=== PATIENT | female | born 1935 | race Caucasian/White ===

== ENCOUNTER 2017-03-30 10:18 | Emergency (ER) | payer MEDICARE ==
[~2017-03-30] VITALS: Ht 160 cm; Wt 104.5 kg
[2017-03-30 10:21] VITALS: BP 158/80; PULSE 62; RESP 14; O2SAT 97
--- NOTE | 2017-03-30 10:32 | ED.REPORT ---
HPI-General Illness Date of Service Mar 30, 2017 ED Provider: Adrian Mendoza MD The pt is a 81 y/o female w/ a hx of HTN and hyperlipidemia presenting to the ED c/o diarrhea onset two weeks ago. The pt reports having 5-6 episodes of diarrhea a day. She is also experiencing a little blood in her stool, dizziness, lightheadedness, lower abdominal pain and lower back pain that comes on like an attack every 15-20 minutes. Denies fevers, vomiting, dysuria, nausea, or recent antibiotics. The pt reports getting a flu shot two weeks ago and her symptoms starting soon after that. Nursing Notes Stated Complaint: DIARRHEA,FLU SYMPTOMS Chief Complaint: Diarrhea Nursing Notes Reviewed: Yes Allergies: Coded Allergies: Penicillins (Verified Allergy, Intermediate, DOESN'T REMEMBER, 03/30/17) Uncoded Allergies: PCN (Allergy, Unknown, 12/23/13) General Time Seen by MD: 10:31 Chief Complaint Diarrhea Hx Obtained From: Patient Arrived By: Walk-in Sudden in Onset?: Yes Onset Occurred: More than a week ago... (2 weeks) Symptom Duration: Intermittent Recent Healthcare: No recent doctor visit, No recent hospitalization Similar Sx Previous: Yes Past Medical History Past Medical History HTN Hyperlipidemia Past Surgical History Bilateral cataract surgery Smoking History Unknown if Ever Smoker Social History Other Social History: Good social support Ambulatory Status Independent Review of Systems Full Review of Systems Constitutional: Denies: Fever GI: Reports: Abdominal pain (Lower ), Bloody/tarry stool, Diarrhea, Denies: Nausea, Vomiting Female: Denies: Dysuria Musculoskeletal: Reports: Back pain (lower ) Neurologic: Reports: Dizziness, Lightheaded Complete sys rev & neg: except as marked. Physical Exam Vital Signs Vital Signs Date Time Temp Pulse Resp B/P Pulse Ox O2 Delivery O2 Flow Rate FiO2 03/30/17 13:41 54 16 158/71 Room Air 03/30/17 10:21 36.5 62 14 158/80 97 Room Air Initial VS: Reviewed General/Constitutional: Well-developed, Well-nourished Head / Eyes: Atraumatic, Normocephalic, PERRL ENT: Mucous membranes moist, Conjunctiva normal, No scleral icterus Neck: Supple, Non-tender, Full range of motion Respiratory: Breath sounds normal, Clear to auscultation, No respiratory distress Cardiovascular: Regular rate & rhythm, Heart sounds normal, Intact distal pulses Back: No CVA tenderness Extremities: Vascular intact, Neuro intact, No swelling, No tenderness Skin: Warm, Dry, No cyanosis Neurologic: Alert, Oriented, Nonfocal Psychiatric: Mood/affect normal, Behavior normal, Normal thought content Abdomen: Soft Mild diffuse abdominal tenderness w/o rebound or guarding Interpretation & Diagnostics Lab Results Interpretation Result Diagram: 03/30/17 1105 03/30/17 1105 Test 03/30/17 11:05 03/30/17 12:49 White Blood Count 10.4th/mm3 (3.8-10.1) Red Blood Count 4.44mil/mm3 (3.90-5.20) Hemoglobin 13.5g/dL (12.0-15.6) Hematocrit 40.8% (35.0-46.0) Mean Corpuscular Volume 91.9fL (81-100) Mean Corpuscular Hemoglobin 30.4pg (27.0-35.0) Mean Corpuscular Hemoglobin Concent 33.1% (32.0-37.0) Red Cell Distribution Width 14.0% (12.3-15.4) Platelet Count 243bil/L (150-400) Neutrophils (%) (Auto) 80.0% (40-74) Lymphocytes (%) (Auto) 11.6% (14-46) Monocytes (%) (Auto) 7.4% (4-12) Eosinophils (%) (Auto) 0.6% (0-5) Basophils (%) (Auto) 0.1% (0-3) Sodium Level 141mEq/L (134-144) Potassium Level 3.8mEq/L (3.5-5.2) Chloride Level 100mEq/L (97-108) Carbon Dioxide Level 25mmol/L (18-29) Blood Urea Nitrogen 27mg/dL (8-27) Creatinine 0.63mg/dL (0.57-1.00) Estimat Glomerular Filtration Rate 130mL/min (>59) Glucose Level 109mg/dL (60-99) Calcium Level 9.6mg/dL (8.5-10.1) Magnesium Level 2.0mg/dL (1.6-2.6) Total Bilirubin 1.3mg/dL (0.0-1.2) Aspartate Amino Transf (AST/SGOT) 38U/L (0-50) Alanine Aminotransferase (ALT/SGPT) 15U/L (0-32) Alkaline Phosphatase 72U/L (25-165) Total Protein 7.2g/dL (6.4-8.4) Albumin 4.0g/dL (3.4-5.0) Lipase 18U/L (13-60) Hold Franklin Top Tube Received (Received) Urine Color Dark yellow (YELLOW) Urine Appearance Clear (CLEAR,HAZY) Urine pH 5.5 (5.0-8.0) Urine Specific [place] 1.030 (1.003-1.035) Urine Protein Tracemg/dL (NEG,TRACE) Urine Glucose (UA) Negativemg/dL (NEGATIVE) Urine Ketones 15mg/dL (NEGATIVE) Urine Occult Blood Negative (NEGATIVE) Urine Nitrite Negative (NEGATIVE) Urine Bilirubin Negative (NEGATIVE) Urine Urobilinogen 1.0mg/dL (NORMAL) Urine Leukocyte Esterase Negative (NEGATIVE) Urine RBC 0-2/hpf (0-2) Urine WBC 0-5/hpf (0-5) Urine Epithelial Cells Occasional/hpf (NONE-MOD) Urine Crystals Oxalic acid crystals (NONE Urine Bacteria None/hpf (NONE-FEW) Urine Hyaline Casts None/lpf (NONE) Urine Granular Casts None seen (NONE SEEN) Urine Waxy Casts None seen (NONE SEEN) Urine Red Blood Cell Casts None seen (NONE SEEN) Urine White Blood Cell Casts None seen (NONE SEEN) Urine Mucus None seen (None Seen) Urine Trichomonas None seen (NONE SEEN) Urine Yeast None (NONE SEEN) Urinalysis Comment None Urine Culture Reflexed Not indicated Re-Eval/Medical Decision Med Decision/Clinical Course 81-year-old female presenting complaining of diarrhea 2 weeks. Multiple episodes daily. No blood at this time. Her abdomen is soft with minimal lower abdominal tenderness. Her white blood cell count is normal. Her labs are unremarkable. Urine is negative for infection. Patient felt much better after IV hydration. Stool studies were ordered the patient unable to have diarrhea while she was here. I ordered this for an outpatient. She felt much better and will be discharged home with plans to hydrate orally at home and follow-up with her primary doctor tomorrow. Source of Hx: Old records Time of Eval: 13:03 Re-Evaluation/Progress Note: Pt rechecked. Informed pt of plan for treatment. Pt understands and agrees with plan for treatment. F/U instructions and RTER warnings given. All questions addressed. Counseled Regarding: Diagnosis, Lab results, Need for follow-up, When/why to return to ED Discharge & Departure Primary Impression: Diarrhea Diarrhea type: unspecified type Qualified Code: R19.7 - Diarrhea, unspecified Additional Impression: Abdominal pain Abdominal location: unspecified location Qualified Code: R10.9 - Unspecified abdominal pain Disposition: Home Discharge Condition All VS Reviewed: Yes Condition: Stable Additional Instructions: Thank for you entrusting us with your care today. You do not have an infection in your urine and all your labs appear normal. You are slightly dehydrated but not severely enough to affect your kidneys. If you continue to have diarrhea please try to collect a sample and we can send it to the lab for further examination. Make sure to drink plenty of fluids at home to rehydrate yourself. Chicken broth , applesauce, and yogurt are all good for you to eat. Over the counter Tylenol will help with your symptoms as well. You should see your primary care provider tomorrow or Monday for further follow up. Please return to the emergency department if you develop worsening abdominal pain, fevers, vomiting, or experience any new or worsening symptoms. I hope you feel better soon. Referrals: Zaki Cerda MD (PCP) Scribe Attestation Portions of this note were transcribed by Samson Vaca. I, Dr. Mendoza personally performed the history, physical exam and medical decision-making; I reviewed and confirmed the accuracy of the information in the transcribed note. copies to: Zaki Cerda MD, Ben M MD Mar 30, 2017 10:32 Samson Vaca Mar 30, 2017 11:12
[2017-03-30] MEDS ORDERED: Ondansetron 2 mg/mL 2 mL Inj IVPUSH PRN (10:45)
[2017-03-30] MEDS ORDERED: 0.9% Sodium Chloride 500 ML IV ONE (10:45)
[2017-03-30] MEDS ORDERED: Ketorolac 15 mg/mL Inj IVPUSH ONE (10:45)
[2017-03-30 11:25] LABS: BASOPHILS % (AUTO) 0.1 % (0-3); EOSINOPHILS % (AUTO) 0.6 % (0-5); MONOCYTES % (AUTO) 7.4 % (4-12); Mean Corpuscular Hemoglobin 30.4 pg (27.0-35.0); Mean Corpuscular Volume 91.9 fL (81-100); Platelet Count 243 bil/L (150-400)
[2017-03-30 13:13] LABS: APPEARANCE,URINE CLEAR (CLEAR,HAZY); COLOR,URINE DARK YELLOW (YELLOW); PH,URINE 5.5 (5.0-8.0)
[2017-03-30 13:14] LABS: OCCULT BLOOD,URINE NEGATIVE (NEGATIVE)
[2017-03-30 13:41] VITALS: BP 158/71; PULSE 54; RESP 16
[2017-03-31] MEDS ORDERED: ATEN25TA PO (17:49)
[2017-03-31] MEDS ORDERED: ASPI-973 PO (17:49)
[2017-03-31] MEDS ORDERED: MULT1CAP33 PO (17:50)
[2017-03-31] MEDS ORDERED: LOVA10TA PO (17:50)
[2017-03-31] MEDS ORDERED: LOVA20TA PO (18:31)
== END 2017-03-30 13:42 | disposition home or self-care (01) ==
LOC: SED 10:18
DX: R10.84 Generalized abdominal pain (principal); R19.7 Diarrhea, unspecified; R42 Dizziness and giddiness; M54.5 Low back pain; I10 Essential (primary) hypertension; E78.5 Hyperlipidemia, unspecified; Z88.0 Allergy status to penicillin
CPT/HCPCS: 36415; 80053; 81000; 83690; 83735; 85025; 87086; 96361; 96374; 96375; 99285; J1885; J2405; J7030

== ENCOUNTER 2017-03-31 11:15 | Inpatient (IN) | payer MEDICARE ==
[~2017-03-31] VITALS: Ht 162.6 cm; Wt 96.4 kg
[2017-03-31 11:16] VITALS: BP 133/73; PULSE 57; RESP 16; O2SAT 96
--- NOTE | 2017-03-31 11:51 | ED.REPORT ---
HPI-Abd Pain F 40 and Over Date of Service Mar 31, 2017 ED Provider: Suraj John PA-C Lydia is an 81-year-old female with a history of hypertension hyperlipidemia who returns to the emergency department with a chief complaint of urinary retention. Seen in this department last night for diarrhea. She received IV hydration but was unable to provide a urine sample and received a straight catheter. She reports she's been unable to urinate since then despite having the urge. She reports drinking 28 ounce cups of Gatorade and one half of the bottle of water last night as well as consuming small amount of yogurt and applesauce. She presented yesterday to emergency department with a chief complaint of 2 weeks of diarrhea 5-6 per day associated with small amount of blood on the toilet paper, dizziness, lightheadedness, spastic lower abdominal and low back pain, chills. The symptoms continue though the rate is somewhat reduced from previously. Denies measured fever, headache, vomiting, dysuria, recent antibiotics. Nursing Notes Stated Complaint: UNABLE TO URINATE Chief Complaint: Female Abdominal Pain Nursing Notes Reviewed: Yes Allergies: Coded Allergies: Penicillins (Verified Allergy, Intermediate, DOESN'T REMEMBER, 03/31/17) Uncoded Allergies: PCN (Allergy, Unknown, 12/23/13) Scheduled Aspirin (Aspirin) 81 Mg Tablet 81 MG PO DAILY Atenolol (Atenolol) 25 Mg Tablet 25 MG PO QAM Lovastatin (Lovastatin) 20 Mg Tablet 20 MG PO HS Multivitamin (Multivitamins) 1 Each Capsule 1 EACH PO DAILY General Time Seen by MD: 11:21 Chief Complaint Unable to urinate Sudden in Onset?: No Past Medical History Past Medical History HTN Hyperlipidemia Past Surgical History Bilateral cataract surgery Smoking History Unknown if Ever Smoker Social History Other Social History: Good social support Ambulatory Status Independent Review of Systems Negative unless stated otherwise in history of present illness Physical Exam General: Well appearing, well developed, well nourished, no acute distress. Head: Atraumatic, normocephalic. Eyes: No scleral icterus or injection. No discharge. Vision grossly intact. ENT: Voice clear, hearing grossly intact. Respiratory: Regular rate and rhythm. No respiratory distress. No increased work of breathing, speaks in complete sentences. Cardiovascular: Regular rate and rhythm, without murmur, gallop or rub. No pedal edema. Gastrointestinal: Obese abdomen mildly tender in lower quadrants, most acutely suprapubically and left lower quadrant. No guarding or rebound. Bowel sounds normoactive. : Normal external genitalia without discharge or prolapse. No evidence of cystocele. Cervix is normal-appearing. Performed with log stacker operator. Rectal: Anus is slightly excoriated, moderately tender. Significant bolus of firm stool is felt the rectal vault. No masses or prolapse. Performed with a log stacker operator. Back: Normal to inspection, negative midline spinous process tenderness, negative CVA tenderness Skin: Warm and dry. Neurological: Hip flexion, knee extension, ankle dorsiflexion and plantarflexion strength 5/5 B/L. Sensation to light touch intact at medial leg, dorsal foot and lateral foot B/L. negative straight leg raise, negative cross straight leg raise. Psychological: Alert and oriented. Speech appropriate, linear and logical. Behavior appropriate. Vital Signs Vital Signs (First) Date Time Temp Pulse Resp B/P Pulse Ox O2 Delivery O2 Flow Rate FiO2 03/31/17 11:16 37.0 57 16 133/73 96 Room Air Slight bradycardia, hypertension. Interpretation & Diagnostics Lab Results Interpretation Result Diagram: 03/31/17 1205 03/31/17 1205 Test 03/31/17 12:04 03/31/17 12:05 Urine Color Yellow (YELLOW) Urine Appearance Hazy (CLEAR,HAZY) Urine pH 6.0 (5.0-8.0) Urine Specific [place] 1.010 (1.003-1.035) Urine Protein Negativemg/dL (NEG,TRACE) Urine Glucose (UA) Negativemg/dL (NEGATIVE) Urine Ketones Negativemg/dL (NEGATIVE) Urine Occult Blood Negative (NEGATIVE) Urine Nitrite Negative (NEGATIVE) Urine Bilirubin Negative (NEGATIVE) Urine Urobilinogen Normalmg/dL (NORMAL) Urine Leukocyte Esterase Negative (NEGATIVE) Urine RBC 0-2/hpf (0-2) Urine WBC 0-5/hpf (0-5) Urine Epithelial Cells Occasional/hpf (NONE-MOD) Urine Crystals None seen (NONE SEEN) Urine Bacteria None/hpf (NONE-FEW) Urine Hyaline Casts None/lpf (NONE) Urine Granular Casts None seen (NONE SEEN) Urine Waxy Casts None seen (NONE SEEN) Urine Red Blood Cell Casts None seen (NONE SEEN) Urine White Blood Cell Casts None seen (NONE SEEN) Urine Mucus None seen (None Seen) Urine Trichomonas None seen (NONE SEEN) Urine Yeast None (NONE SEEN) Urinalysis Comment None Urine Culture Reflexed Not indicated White Blood Count 8.0th/mm3 (3.8-10.1) Red Blood Count 3.79mil/mm3 (3.90-5.20) Hemoglobin 11.7g/dL (12.0-15.6) Hematocrit 35.3% (35.0-46.0) Mean Corpuscular Volume 93.1fL (81-100) Mean Corpuscular Hemoglobin 30.9pg (27.0-35.0) Mean Corpuscular Hemoglobin Concent 33.1% (32.0-37.0) Red Cell Distribution Width 13.9% (12.3-15.4) Platelet Count 224bil/L (150-400) Neutrophils (%) (Auto) 71.1% (40-74) Lymphocytes (%) (Auto) 17.0% (14-46) Monocytes (%) (Auto) 9.3% (4-12) Eosinophils (%) (Auto) 2.4% (0-5) Basophils (%) (Auto) 0.1% (0-3) Sodium Level 146mEq/L (134-144) Potassium Level 4.1mEq/L (3.5-5.2) Chloride Level 105mEq/L (97-108) Carbon Dioxide Level 29mmol/L (18-29) Blood Urea Nitrogen 23mg/dL (8-27) Creatinine 0.61mg/dL (0.57-1.00) Estimat Glomerular Filtration Rate 135mL/min (>59) Glucose Level 101mg/dL (60-99) Calcium Level 8.8mg/dL (8.5-10.1) Total Bilirubin 1.0mg/dL (0.0-1.2) Aspartate Amino Transf (AST/SGOT) 27U/L (0-50) Alanine Aminotransferase (ALT/SGPT) 15U/L (0-32) Alkaline Phosphatase 66U/L (25-165) Total Protein 6.1g/dL (6.4-8.4) Albumin 3.6g/dL (3.4-5.0) Procalcitonin 0.04ng/mL (0.00-0.08) Hold [place] Top Tube Received (Received) Re-Eval/Medical Decision Med Decision/Clinical Course 81-year-old female presenting to the emergency department chief complaint urinary retention. She has department last night for diarrhea. She was unable to urinate last night despite receiving IV fluids and was straight cathetered. Patient states she has been unable to urinate since going home. Discharge with diagnosis of diarrhea and abdominal pain. She returns today with a stool sample for analysis. She's been unable to urinate despite having the urge. She reports drinking half a bottle of water, 8 ounce cups of Gatorade and eating a small amount of yogurt and applesauce. She reports taking atenolol, aspirin, lovastatin, vitamins. Denies use of cold medications. On physical examination she has a tender lower abdomen, but otherwise appears well with normal neurological examination, nontender back, essentially normal vital signs. Bladder scan indicates 278 mL's of retained urine however significantly more is produced after Sol catheterization. CBC is negative for leukocytosis, showing slight anemia with hemoglobin of 11.7 hematocrit of 35.3. CMP reveals mild hyper nature anemia at 146, slightly low protein at 6.1. Urinalysis is normal. I discussed the case with Dr. Zaman, who recommends assessing for cystocele, rectocele, fecal impaction. Pelvic examination is performed with a log stacker operator as well as Dr. Mendoza.. This appears normal with no evidence of cystocele. On rectal examination there is a significant bolus of firm but not hard stool in the rectal vault. At this point we suspect both diarrhea and urinary retention or caused by fecal matter obstruction. Less concern for dangerous conditions such as cauda equina, colitis, appendicitis. I discussed this plan with Dr. Mendoza, who recommends Dulcolax suppository, MiraLAX. Plan to discharge with Sol and follow-up with primary care in a day or 2. Follow up with urology if urinary retention persists after satisfactory bowel movements. After this conversation we were notified that the patient is positive for C differential. I discussed this finding with Dr. Duncan, who recommends 125 mg vancomycin by mouth 4 times a day 10. He feels this is reasonable to manage on an outpatient basis and agrees with the rest of the plan. Patient was provided with Sol training by her nurse. She does not feel capable of managing her situation at home. She requests admission to the hospital. She is advised that this may result in a substantial [id number] expense, and still wishes to proceed. Discussed the case with hospitalist, who accepted admission. Patient is transferred to floor in stable condition. Re-Evaluation/Progress : Re-Evaluation/Progress Note: Recommends investigating constipation, cystocele. If this is normal, discharge with Sol for outpatient follow-up. Consultation : Referral / Consult Name: Charles Haas MD Consulted With: Urology Note: Recommends assessing for cystocele, rectocele, fecal impaction. Will see in clinic if necessary. Discharge & Departure Primary Impression: C. difficile diarrhea Additional Impressions: Abdominal pain Abdominal location: lower abdomen, unspecified Qualified Code: R10.30 - Lower abdominal pain, unspecified Urinary retention Disposition: Home Discharge Condition All VS Reviewed: Yes Condition: Stable Additional Instructions: Evaluation in the emergency department for urinary retention include interview, physical examination, blood and urine analysis and consultation with a urologist. We suspect that both your urinary retention and diarrhea could be caused by obstructing stool in your rectum. We'll treat this with Dulcolax suppositories as well as stool softeners. I will write you prescriptions for both. Additionally, stool testing suggests that your diarrhea is partially caused by an overgrowth of C. difficile, a potentially harmful bacteria. This will be treated with vancomycin 125 mg taken 4 times a day for 10 days. Please be sure to take every dose, even after symptoms resolve. You will be discharged with the Sol catheter in place. We have provided training and how to empty the bag. Follow-up with your primary care provider in a day or 2 for further assessment and to consider removing the Sol. If, after several significant bowel movements, you still have urinary retention , I will provide you with a referral to a urologist. Please contact them to arrange follow-up if necessary. Return to the emergency department for any new or worsening symptoms including increasing pain, fever. Referrals: Zaki Cerda MD (PCP) Charles Haas MD EDSupervising Provider for APC: Adrian Mendoza MD copies to: Zaki Cerda MD; Charles Haas MD, Seth PA-C Mar 31, 2017 11:51
[2017-03-31 12:19] LABS: BASOPHILS % (AUTO) 0.1 % (0-3); EOSINOPHILS % (AUTO) 2.4 % (0-5); MONOCYTES % (AUTO) 9.3 % (4-12); Mean Corpuscular Hemoglobin 30.9 pg (27.0-35.0); Mean Corpuscular Volume 93.1 fL (81-100); NEUTROPHILS % (AUTO) 71.1 % (40-74); Platelet Count 224 bil/L (150-400)
[2017-03-31 12:36] LABS: APPEARANCE,URINE HAZY (CLEAR,HAZY); COLOR,URINE YELLOW (YELLOW); OCCULT BLOOD,URINE NEGATIVE (NEGATIVE); UROBILINOGEN,URINE NORMAL (NORMAL)
[2017-03-31 13:52] VITALS: BP 152/59; PULSE 58; RESP 20; O2SAT 98
[2017-03-31 16:25] VITALS: BP 161/48; PULSE 53; RESP 20; O2SAT 93
[2017-03-31] MEDS ORDERED: Ondansetron 2 mg/mL 2 mL Inj IVPUSH PRN (16:30)
[2017-03-31] MEDS ORDERED: Alum-Mag Hydrox-Simeth 30 mL Suspension PO PRN (16:30)
[2017-03-31] MEDS: Heparin 5,000 Unit/mL Inj SUBQ SCH (16:30)
[2017-03-31] MEDS ORDERED: Polyethylene Glycol (PEG) 17 Gm Powder PO PRN (16:30)
[2017-03-31] MEDS ORDERED: ATEN25TA PO (17:49)
[2017-03-31] MEDS ORDERED: ASPI-973 PO (17:49)
[2017-03-31] MEDS ORDERED: LOVA10TA PO (17:50)
[2017-03-31] MEDS ORDERED: MULT1CAP33 PO (17:50)
--- NOTE | 2017-03-31 18:11 | PCM.HPMED ---
Subjective Date of Service Mar 31, 2017 Primary Provider: Admitting Physician: Primary Care Physician: Zaki Cerda MD Attending Physician: Admit Status: From the Emergency Department, 23-Hour Observation, Admit to [facility] Team Chief Complaint: Diarrhea and urinary retention. . History of Present Illness: Lydia Rodriguez is an 81-year-old female with a past medical history significant for hypertension and hyperlipidemia who presented to [facility] emergency Department for diarrhea and urinary retention. The patient was seen yesterday in the ER for diarrhea 3 weeks but was unable to submit a stool sample and was discharged home. She returns today due to inability to void. A stool sample was submitted for PCR and came back positive for C. difficile. A Sol catheter was placed and 400 mL of urine was drained. She complains of diarrhea that is loose and foul smelling 3 weeks. She has had intermittent rectal pain the last 15-20 minutes at a time. She rates the severity of the pain +9 out of 10. The quality of the pain is sharp. She denies headache, vision changes, sore throat, cough, chest pain, shortness of breath, nausea, vomiting, fever, dysuria, or constipation. She endorses associated chills and lightheadedness. She has no other complaints. She has not been on oral antibiotics recently. She received antibiotic eyedrops for cataract surgery in December. Vital signs in the ER: Temperature 37.0. Pulse 57. Respiratory rate 16. Blood pressure 133/73. Pulse ox 96% room air. She received acetaminophen and 75 mg 1 in the ED. PCP is Dr. Zaki Cerda. . Review of Systems: A comprehensive review of systems was conducted with the patient and found to be negative except as above in the History of Present Illness. . Allergies Coded Allergies: Penicillins (Verified Allergy, Intermediate, DOESN'T REMEMBER, 03/31/17) Uncoded Allergies: PCN (Allergy, Unknown, 12/23/13) Home Medications Aspirin 81 mg daily. Atenolol 12.5 mg daily. Lovastatin 10 mg daily at bedtime. . PMH 1. Hypertension. 2. Hyperlipidemia. . Surgical History 1. Bilateral cataract extraction. . Family History Mother who had diabetes mellitus type II and CABG who from old age at 103 years old. Father who had heart disease and of [place] at 78 years old. . Social History Hx Alcohol Use: No Hx Substance Use: No Hx Tobacco Use: No Smoking Status: Never Smoker Additional Information The patient is . She was x 53 years. She has 3 sons, one of which of an VA at 51 years old. 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 . Exam Vital Signs Vital Sign - Last Date Time Temp Pulse Resp B/P Pulse Ox O2 Delivery O2 Flow Rate FiO2 03/31/17 16:25 37.0 53 20 161/48 93 Room Air Exam General: Elderly female lying in bed and in no acute distress, well-developed, well-nourished, appropriately interactive. HEENT: Normocephalic, atraumatic. External ears without defect. Pupils equal, round, and reactive to light. Anicteric sclerae, moist conjunctivae, and no lid lag. Oropharynx free of erythema and cobble stoning with moist mucosa. Neck: Supple with full range of motion. No jugular venous distension. No bruits. No lymphadenopathy or thyromegaly. Cardiovascular: Regular rate and rhythm without murmurs, rubs, or gallops appreciated Pulmonary: Clear to auscultation bilaterally without crackles, wheezes, or rhonchi. Normal respiratory effort with no use of accessory muscles. Abdomen: Soft, obese, mild tenderness to palpation in lower quadrants bilaterally, nondistended. No hepatosplenomegaly or masses appreciated. Extremities: No clubbing, cyanosis, or edema. Skin: Normal temperature, turgor, and texture; no rash, ulcers, or subcutaneous nodules appreciated. Neurological: Cranial nerves grossly intact. Normal muscle strength, tone, and bulk. Reflexes, coordination, and sensory function within normal limits. No known gait impairment. Psychiatric: Normal mood and affect. Alert and oriented to person, place, and time. . Lab and Diagnostics Labs Item Value Date Time Calcium Level 8.8 mg/dL 03/31/17 1205 Total Bilirubin 1.0 mg/dL 03/31/17 1205 Aspartate Amino Transf (AST/SGOT) 27 U/L 03/31/17 1205 Alanine Aminotransferase (ALT/SGPT) 15 U/L 03/31/17 1205 Alkaline Phosphatase 66 U/L 03/31/17 1205 Total Protein 6.1 g/dL L 03/31/17 1205 Albumin 3.6 g/dL 03/31/17 1205 Procalcitonin 0.04 ng/mL 03/31/17 1205 Result Diagram: 03/31/17 1205 03/31/17 1205 Microbiology Stool PCR positive for C. difficile. . Assessment & Plan Lydia Rodriguez is an 81-year-old female with a past medical history significant for hypertension and hyperlipidemia who presented to [facility] emergency Department for diarrhea and urinary retention. 1. Acute C. difficile colitis, present on admission. Active. - Patient presented with diarrhea 3 weeks, intermittent rectal pain, and urinary retention. She was found to have rectal fecal impaction on digital rectal exam in the ED. Afebrile without leukocytosis. - Pro-calcitonin negative at 0.04. - Ordered contact isolation. - Ordered vancomycin 125 mg 4 times a day for 10 days discussed by ER physician with Dr. Duncan of infectious disease. - Acetaminophen as needed for pain. 2. Acute urinary retention, present on admission. Active. - Patient presented with urinary retention 1 day. - Likely secondary to fecal impaction. - Urinalysis negative. - Sol catheter placed and drained 400 mL in the ED. Plan to keep Sol catheter in place until tomorrow then will remove and do a void trial. 3. Acute fecal impaction, present on admission. Active. - Rectal fecal impaction likely contributing to patient's inability to void and urinary retention. - Ordered soapsuds enema 2. May use mineral oil enema if unable to resolve rectal fecal impaction. Chronic problems: 3. Hypertension, present on admission. Stable. - Continue atenolol 12.5 mg daily. 4. Hyperlipidemia, presently admission. Stable. - Continue lovastatin 10 mg daily at bedtime and aspirin 81 mg daily. PRN antiemetics: Zofran and Maalox. PRN bowel regimen: Senna and MiraLAX. PRN analgesics: Tylenol. Patient is admitted under observation status with expected length of stay less than 2 midnights due to severity of presenting symptoms, risk of adverse event, and complexity of treatment plan. . Pain Evaluation: Adequate Pain Control VTE Prophylaxis: Sub-Q Heparin (Unfractionated) Resuscitation Status: CPR: Attempt Resuscitation Attending Statement I saw and examined the patient independently. Dr. Damian and I discussed the assessment and plan. I agree with the history, exam, and plan as outlined in the note above. copies to: Zaki Cerda MD, [place] M DO Mar 31, 2017 16:35 Alex Herrera MD Mar 31, 2017 21:18
[2017-03-31 18:16] VITALS: BP 134/55; PULSE 69; RESP 20; O2SAT 95
[2017-03-31 18:24] VITALS: PULSE 76
[2017-03-31] MEDS ORDERED: LOVA20TA PO (18:31)
--- NOTE | 2017-03-31 19:35 | NUR ---
ADMIT Received from the ED via a gurney. Transferred to the bed with SBA. IFC intact and draining to january colored UO. Complained of abdominal cramping. + for Cdiff. Placed on precautions. Denies nausea. No emesis noted. Denies SOB. Soaps suds enema administered X 1. No results yet. Will repeat in 1 hour per MD. Care endorsed to Michelle Hoffmann RN.
[2017-03-31 19:40] VITALS: BP 129/74; PULSE 72; RESP 18; O2SAT 96
[2017-03-31] MEDS: Vancomycin 125 mg Oral Capsule PO SCH (21:03)
[2017-04-01] MEDS: Heparin 5,000 Unit/mL Inj SUBQ SCH ×4 (00:02→23:36)
[2017-04-01 00:10] VITALS: BP 122/68; PULSE 74; RESP 18; O2SAT 95
[2017-04-01] MEDS: Vancomycin 125 mg Oral Capsule PO SCH ×4 (03:15→21:38)
[2017-04-01 05:05] VITALS: BP 141/70; PULSE 77; RESP 18; O2SAT 96
[2017-04-01 05:10] LABS: BASOPHILS % (AUTO) 0.2 % (0-3); EOSINOPHILS % (AUTO) 5.3 % (0-5); MONOCYTES % (AUTO) 9.9 % (4-12); Mean Corpuscular Hemoglobin 30.4 pg (27.0-35.0); Mean Corpuscular Volume 92.4 fL (81-100); NEUTROPHILS % (AUTO) 65.1 % (40-74); Platelet Count 213 bil/L (150-400)
[2017-04-01 05:47] VITALS: PULSE 61
--- NOTE | 2017-04-01 06:30 | NUR ---
GI Patient received 2 soap suds enemas yesterday with only small return of liq stool. Miralax given at HS without further stools by morning. night hospitalist informed. Pt denies nausea, taking fluids without problems.
[2017-04-01] MEDS ORDERED: Polyethylene Glycol (PEG) 17 Gm Powder PO PRN (09:40)
[2017-04-01 09:57] VITALS: PULSE 64
[2017-04-01 11:58] VITALS: BP 124/67; PULSE 70; RESP 17; O2SAT 96
[2017-04-01] MEDS: Senna-Docusate 8.6-50 mg Tablet PO SCH ×2 (12:39→21:38)
--- NOTE | 2017-04-01 13:14 | NUR ---
Case Management: IMM given and explained to pt. Hayley PEREARN
[2017-04-01] MEDS ORDERED: .Epic Conversion Completed XX PRN (13:40)
--- NOTE | 2017-04-01 14:18 | PCM.PNMED ---
Subjective Date of Service Apr 01, 2017 Subjective Pt had 2 small BM after enema. Nothing since. Exam Vital Signs Vital Sign - Last Date Time Temp Pulse Resp B/P Pulse Ox O2 Delivery O2 Flow Rate FiO2 04/01/17 11:58 36.7 70 17 124/67 96 Room Air Intake and Output 03/31/17 03/31/17 04/01/17 Cumulative From/Thru 15:00 23:00 07:00 03/31/17 11:16 - 04/01/17 05:45 Intake Total 320 ml 350 ml 670 ml Output Total 350 ml 850 ml 1200 ml Balance -30 ml -500 ml -530 ml Intake Oral 320 ml 350 ml 670 ml Output Urine Total 350 ml 600 ml 950 ml Stool Total 250 ml 250 ml Bladder Scan Volume Amount 278 mLs # Bowel Movements 0 0 Exam General: Elderly female lying in bed and in no acute distress, well-developed, well-nourished, appropriately interactive. HEENT: Normocephalic, atraumatic. External ears without defect. Pupils equal, round, and reactive to light. Anicteric sclerae, moist conjunctivae, and no lid lag. Oropharynx free of erythema and cobble stoning with moist mucosa. Neck: Supple with full range of motion. No jugular venous distension. No bruits. No lymphadenopathy or thyromegaly. Cardiovascular: Regular rate and rhythm without murmurs, rubs, or gallops appreciated Pulmonary: Clear to auscultation bilaterally without crackles, wheezes, or rhonchi. Normal respiratory effort with no use of accessory muscles. Abdomen: Soft, obese, mild tenderness to palpation in lower quadrants bilaterally, nondistended. No hepatosplenomegaly or masses appreciated. Extremities: No clubbing, cyanosis, or edema. Skin: Normal temperature, turgor, and texture; no rash, ulcers, or subcutaneous nodules appreciated. Neurological: Cranial nerves grossly intact. Normal muscle strength, tone, and bulk. Reflexes, coordination, and sensory function within normal limits. No known gait impairment. Psychiatric: Normal mood and affect. Alert and oriented to person, place, and time. IVs and Medications Medications Reviewed: Medications were reviewed in detail Lab and Diagnostics Result Diagram: 04/01/17 0419 04/01/17 0419 Microbiology Stool PCR positive for C. difficile. . Assessment & Plan Lydia Rodriguez is an 81-year-old female with a past medical history significant for hypertension and hyperlipidemia who presented to [facility] emergency Department for diarrhea due to C Diff Colitis. 1. Acute C. difficile colitis, present on admission. Active. - Patient presented with diarrhea 3 weeks, intermittent rectal pain. Afebrile without leukocytosis. First known episode. No hx of abx. No contacts w/ C.Diff. Lives alone. - Pro-calcitonin negative at 0.04. - Ordered contact isolation. - Ordered vancomycin 125 mg 4 times a day for 10 days started 03/31 to be completed 04/10. 2. Acute urinary retention, present on admission. Active. - Patient presented with urinary retention 1 day. - Likely secondary to fecal impaction. - Urinalysis negative. - Sol catheter placed and drained 400 mL in the ED. - Voiding trial once BM's regular. 3. Acute fecal impaction, present on admission. Active. - Rectal fecal impaction likely contributing to patient's inability to void and urinary retention. - Ordered soapsuds enema 2 - Bowel regimen, Fleet Enema ordered. Chronic problems: 3. Hypertension, present on admission. Stable. - Continue atenolol 12.5 mg daily. 4. Hyperlipidemia, presently admission. Stable. - Continue lovastatin 10 mg daily at bedtime and aspirin 81 mg daily. PRN antiemetics: Zofran and Maalox. PRN bowel regimen: Senna and MiraLAX. PRN analgesics: Tylenol. Patient- changed from observation status to inpatient on 04/01 with expected length of stay greater than 2 midnights due to severity of presenting symptoms, risk of adverse event, and complexity of treatment plan. . VTE Prophylaxis: Sub-Q Heparin (Unfractionated) VTE Mechanical Devices: Intermittant Pneumatic CD Resuscitation Status: CPR: Attempt Resuscitation Alex Herrera MD Apr 01, 2017 14:18
[2017-04-01] MEDS ORDERED: Polyethylene Glycol (PEG) 17 Gm Powder PO ONE (14:25)
--- NOTE | 2017-04-01 17:33 | NUR ---
GI Patient had 2 small BM's after enemas given yesterday. Administered 2 mineral oil enemas, miralax, & senna/docusate tabs, all ineffective with no BM today. Patient states she is not having any more abdominal pain. BT's present. Up to bedside commode with 1 person SBA. Sol catheter still patent and draining urine. Left in due to retention caused by constipation.
[2017-04-01 21:14] VITALS: BP 186/82; PULSE 72; RESP 18; O2SAT 95
--- NOTE | 2017-04-01 21:30 | NUR ---
SEE PAPER CHARTING AFTER MIDNIGHT.
--- NOTE | 2017-04-01 22:50 | NUR ---
GI; mineral oil enema given to pt then assisted up to bsc. Pt states passed small amount of gas and experienced abd pains while up to bsc. No bms so far on this shift.
== END 2017-04-02 01:26 | disposition admitted as inpatient to this hospital (09) | DRG 951 ==
LOC: SED 11:15 → OBSVTOIN 17:21 → OSC 17:21
PROVIDERS: ADMIT Internal Medicine; ATTEND Internal Medicine
DX: R69 Illness, unspecified (principal)